=== PATIENT | male | born 2000 | race Caucasian/White ===

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

== ENCOUNTER 2020-02-06 13:26 | Outpatient (CLI) | payer OTHER, SELFPAY ==
--- NOTE | ~2020-02-06 | US_ITS ---
EXAMINATION: US venous doppler [facility] DATE: 02/06/2020 14:22 INDICATION: Left lower limb pain. TECHNIQUE: Grayscale ultrasound images without and with compression and Doppler ultrasound images of the left lower extremity veins were obtained. COMPARISON: None. FINDINGS: The visualized portions of left common femoral vein, profunda (deep) femoral vein, femoral vein, popl iteal vein, peroneal veins, posterior tibial veins, and greater saphenous vein outflow are patent. IMPRESSION: 1. No deep venous thrombosis. Reviewed, dictated and finalized at location A.
== END 2020-02-06 13:27 | disposition home or self-care (01) ==
PROVIDERS: PCP Registered Nurse; Visit Provider Registered Nurse
DX: M79.662 Pain in left lower leg (principal)
CPT/HCPCS: 93971

== ENCOUNTER 2020-02-15 12:38 | Outpatient (CLI) | payer OTHER, SELFPAY ==
--- NOTE | 2020-02-19 13:04 | WPDHOLTEREM ---
Holter/Event Monitor Holter/Event Monitor Date of procedure: 02/15/20 Procedure Type: 48 hour holter monitor Indications: Chest pain Conclusion: 1. 48 hour holter monitor on 02/15/20. 2. Underlying rhythm is sinus rhythm. HR range 45-158 bpm; average HR 88 bpm. 3. There are 2 premature supraventricular complexes. No supraventricular tachycardia. 4. No premature ventricular complexes. No ventricular tachycardia. 5. No sinoatrial or atrioventricular blocks. The longest pause is 2.3 seconds at 06:48. 6. Patient reports symptoms of dizziness, chest pain which demonstrate sinus rhythm, HR range 68-122 bpm.
== END 2020-02-15 12:39 | disposition home or self-care (01) ==
PROVIDERS: PCP Registered Nurse; Visit Provider Registered Nurse
DX: R42 Dizziness and giddiness (principal); R07.9 Chest pain, unspecified
CPT/HCPCS: 93225; 93226

== ENCOUNTER 2020-03-17 23:09 | Emergency (ER) | payer OTHER, SELFPAY ==
[2020-03-17 23:11] VITALS: BP 153/97; PULSE 105; RESP 16; TEMP 36.6; O2SAT 100
[2020-03-17 23:30] LABS: Basophils Percent Auto 0.4 % (0.2-1.2); Eosinophils Absolute Auto 0.1 K/mm3 (0-0.3); Eosinophils Percent Auto 1.2 % (0-4.4); Hematocrit 46.7 % (42.0-52.0); Hemoglobin 15.5 g/dL (14.0-18.0); Immature Granulocyte Absolute 0.01 K/mm3 (0.00-0.031); Immature Granulocyte Percent A 0.1 % (0-0.5); Lymphocytes Absolute Auto 1.63 K/mm3 (0.9-3.2); Lymphocytes Percent Auto 20.1 % (18.3-44.2); Mean Corpuscular HGB Conc 33.2 g/dl (32-36); Mean Corpuscular Hemoglobin 26.3 pg (26-34); Mean Corpuscular Volume 79.3 fl (80-100); Monocytes Absolute Auto 0.5 K/mm3 (0.1-0.6); Monocytes Percent Auto 6.4 % (2.6-8.5); Neutrophils Absolute Auto 5.8 K/mm3 (1.3-6.7); Neutrophils Percent Auto 71.8 % (45.5-73.1); Platelet Count Result 263 k/mm3 (150-375); Red Blood Count 5.89 M/mm3 (4.6-6.20); Red Cell Distribution Width 14.7 % (11.5-14.5); White Blood Count 8.1 K/mm3 (4.5-10.0)
[2020-03-17 23:45] LABS: Alanine Aminotransferase 85 U/L (4-50); Albumin Level 4.7 g/dL (3.7-5.6); Alkaline Phosphatase 71 U/L (58-237); Anion Gap 9 mmol/L (8-16); Aspartate Amino Transferase 62 U/L (17-59); Bilirubin,Total 0.5 mg/dL (0.2-1.3); Blood Urea Nitrogen 13 mg/dL (8-21); Calcium 9.4 mg/dL (8.9-10.7); Carbon Dioxide 28 mmol/L (22-30); Chloride 101 mmol/L (98-107); Estimated CRCL calculation 156 ml/min; Estimated Glomerular Filt Rate > 60; Glucose 141 mg/dL (75-110); Lipase 64 U/L (23-300); Potassium 3.5 mmol/L (3.4-5.0); Sodium 138 mmol/L (134-143)
[2020-03-17 23:47] LABS: Add Urine Microscopic? YES; Appearance Urine Clear (Clear); Bilirubin Urine Negative (Negative); Blood Urine Negative (Negative); Color Urine Yellow (Yellow); Glucose Urine UA Negative (Negative); Ketones Urine Negative (Negative); Leukocyte Esterase Ur Negative LEU/UL (Negative); Mucus Urine Heavy /lpf; Nitrate Urine Negative (Negative); Protein Urine 1+ mg/dL (Negative); RBC Urine 0-2 /hpf (0-2); Squamous Epithelial Cell Urine Occasional /hpf (Few); Urobilinogen Urine Negative mg/dL (<2.0); WBC Urine 0-3 /hpf
[2020-03-17 23:49] LABS: Specific Grav Ur 1.035 (1.001-1.035)
--- NOTE | 2020-03-18 01:43 | ED.ABDPAIN ---
HPI - Abdominal Pain General Chief Complaint: Abdominal Pain Stated Complaint: abd pain, congestion Time Seen by Provider: 03/18/20 01:43 History of Present Illness HPI narrative: 19 yo male w/ h/o IBS presents to the ED for abdominal Pain. Epigastric pain for the past 4 days. Feels like pressure. Worse with food. Tried pepcid and dicyclomine without relief. Does not feel like his usual IBS symptoms. This was preceded by sore throat. No fever. Related Data Home Medications Medication Instructions Recorded Confirmed dicyclomine 10 mg PO DAILY 10/03/19 10/10/19 ferrous sulfate 325 mg PO DAILY 03/18/20 Allergies Allergy/AdvReac Type Severity Reaction Status Date / Time No Known Allergies Allergy Verified 03/18/20 01:58 Review of Systems Review of Systems: All systems reviewed & are unremarkable except as noted in HPI and below Constitutional: Constitutional: Denies chills and Denies fever(s) ENT: Reports sore throat Cardiovascular: Cardiovascular: Denies chest pain Respiratory: Respiratory: Denies dyspnea Gastrointestinal: Gastrointestinal: Reports abdominal pain, Denies constipation, Denies diarrhea, Reports nausea and Denies vomiting Genitourinary: Genitourinary: Denies dysuria Musculoskeletal: Musculoskeletal: Denies back pain Neurologic: Denies dizziness and Denies weakness [facility] Past Medical History Medical History (Updated 03/18/20 @ 02:54 by Jose Elizondo MD) Anxiety Heart murmur IBS (irritable bowel syndrome) Surgical History Surgical History No history of previous surgery Social History Social History Smoking status: Never smoker Gender identity (if verbalized by the patient): Male Course Vital Signs Vital signs: Vital Signs Temperature 36.6 C 03/17/20 23:11 Pulse Rate 105 H 03/17/20 23:11 Respiratory Rate 16 03/17/20 23:11 Blood Pressure 153/97 H 03/17/20 23:11 Pulse Oximetry 100 03/17/20 23:11 Temperature 36.6 C 03/17/20 23:11 Pulse Rate 105 H 03/17/20 23:11 Respiratory Rate 16 03/17/20 23:11 Blood Pressure 153/97 H 03/17/20 23:11 Pulse Oximetry 100 03/17/20 23:11 MDM - Abdominal Pain MDM Narrative Medical decision making narrative: Temorary relief from GI cocktail. Ths suggest gastric or esophageal source is most likely. I will start him on acid controllingmedications. Medical Records Attestation: I reviewed the patient's medical records. Lab Data Attestation: I reviewed the patient's lab results. Result diagrams: 03/17/20 23:18 03/17/20 23:18 Labs: Lab Results 03/17/20 03/17/20 03/17/20 Range/Units 23:18 23:18 23:28 WBC 8.1 (4.5-10.0) K/mm3 RBC 5.89 (4.6-6.20) M/mm3 Hgb 15.5 (14.0-18.0) g/dL Hct 46.7 (42.0-52.0) % MCV 79.3 L (80-100) fl MCH 26.3 (26-34) pg MCHC 33.2 (32-36) g/dl RDW 14.7 H (11.5-14.5) % Plt Count 263 (150-375) k/mm3 MPV 8.0 (7.4-10.4) fl Immature Gran % (Auto) 0.1 (0-0.5) % Neut % (Auto) 71.8 (45.5-73.1) % Lymph % (Auto) 20.1 (18.3-44.2) % Merrick % (Auto) 6.4 (2.6-8.5) % Eos % (Auto) 1.2 (0-4.4) % Baso % (Auto) 0.4 (0.2-1.2) % Lymph # (Auto) 1.63 (0.9-3.2) K/mm3 Merrick # (Auto) 0.5 (0.1-0.6) K/mm3 Eos # (Auto) 0.1 (0-0.3) K/mm3 Baso # (Auto) 0.0 (0.0-0.1) K/mm3 Abs Immat Gran (auto) 0.01 (0.00-0.031) K/mm3 Absolute Neuts (auto) 5.8 (1.3-6.7) K/mm3 Absolute Nucleated RBC 0.0 (0.0-0.012) K/mm3 Nucleated RBC % 0.0 (0.0-0.2) % Sodium 138 (134-143) mmol/L Potassium 3.5 (3.4-5.0) mmol/L Chloride 101 (98-107) mmol/L Carbon Dioxide 28 (22-30) mmol/L Anion Gap 9 (8-16) mmol/L BUN 13 (8-21) mg/dL Creatinine 0.80 (0.7-1.3) mg/dL Estim Creat Clear Calc 156 ml/min Estimated GFR > 60 (59 - ) Glucose 141 H (75-110)
[2020-03-18] MEDS: ACETAMINOPHEN 500 MG TABLET 1000 MG PO (02:28)
== END 2020-03-18 03:00 | disposition home or self-care (01) ==
PROVIDERS: Emergency Medicine; Emergency Provider Emergency Medicine; PCP Registered Nurse
DX: R10.13 Epigastric pain (principal); K58.9 Irritable bowel syndrome, unspecified
CPT/HCPCS: 36415; 80053; 81001; 83690; 85025; 99283; A9270